=== PATIENT | male | born 1970 | race Caucasian/White ===

== ENCOUNTER 2023-11-19 12:01 | Emergency (ER) | payer OTHER ==
[2023-11-19] MEDS: Lidocaine 1% 5 ML VIAL INJECT ONE (13:27)
== END 2023-11-19 14:04 | disposition home or self-care (01) ==
LOC: JP.ED 12:01
DX: S63.286A Dislocation of proximal interphalangeal joint of right little finger, initial encounter (principal); W23.1XXA Caught, crushed, jammed, or pinched between stationary objects, initial encounter
CPT/HCPCS: 26700; 26770; 73140-26-F9; 73140-F9; 99283; 99283-25